=== PATIENT | male | born 1985 | race Caucasian/White ===

== ENCOUNTER 2018-03-22 11:10 | Outpatient (CLI) | payer MEDICAID ==
--- NOTE | 2018-03-22 15:46 | Ultrasound Report ---
Reason: ABDOMINAL PAIN,RIGHT UPPER QUADRANT Procedure Date: 03/22/2018 Accession Number: [id number] / [id number] Procedure: US - Abdomen Limited CPT Code: FULL RESULT: EXAM: ABDOMEN ULTRASOUND LIMITED, RIGHT UPPER QUADRANT EXAM DATE: 03/22/2018 11:51 AM. CLINICAL HISTORY: ABDOMINAL PAIN, RIGHT UPPER QUADRANT. COMPARISON: None. TECHNIQUE: Real-time scanning was performed with static images obtained. FINDINGS: Liver: Normal in size and echotexture. Right lobe measures at least 15.7 cm. Main portal vein flow: Hepatopetal. Gallbladder: Minimal amount of sludge is seen. No stones, wall thickening, or sonographic Rice's sign. Biliary System: CBD measures 4 mm. No intrahepatic or extrahepatic ductal dilatation. Other: Right kidney measures up to 10.4 cm in maximal sagittal dimension and demonstrates no calculi or hydronephrosis. IMPRESSION: Minimal sludge within the gallbladder with no evidence of cholecystitis. [facility]
--- NOTE | 2018-03-22 15:51 | Ultrasound Report ---
Reason: ABDOMINAL PAIN, RUQ Procedure Date: 03/22/2018 Accession Number: [id number] / [id number] Procedure: US - Pelvic Limited or F/U CPT Code: FULL RESULT: EXAM: Limited abdominal/pelvic ultrasound EXAM DATE: 03/22/2018 11:48 AM. CLINICAL HISTORY: Abdominal pain, right upper quadrant . COMPARISON: None. TECHNIQUE: Real-time scanning was performed of the right lower quadrant with static images obtained. FINDINGS: In the right lower quadrant there was normal peristalsis without evidence of inflammatory local ileus. APPENDIX: Partially seen with a compressed diameter of less than 4 mm. Compressible: Yes. Appendicolith Seen: No. COMPRESSION TOLERATED: The patient tolerated compression without discomfort. ASSOCIATED FINDINGS: Lymph Nodes Seen: No. Free Fluid/Complex Fluid Seen: No. Thickened Bowel Wall Seen: No. Other: None. IMPRESSION: Normal appearance of the right lower quadrant with only partial visualization of the appendix. [facility]
== END 2018-03-22 11:11 | disposition home or self-care (01) ==
LOC: DI 11:10
PROVIDERS: ATTEND Nurse Practitioner
DX: R10.11 Right upper quadrant pain (principal)
CPT/HCPCS: 76705; 76857